=== PATIENT | male | born 2000 | race Caucasian/White ===

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

== ENCOUNTER → 2020-05-10 | Outpatient (CLI) | payer OTHER ==
[2020-05-10 18:53] LABS: African American GFR (CKD) 125.9 (60.0-200.0); Albumin 4.6 g/dL (3.80-4.90); Albumin/Globulin Ratio 1.84 (1.60-3.17); Anion Gap 6.8 mmol/L (4.00-12.00); Calcium 9.7 mg/dL (8.7-10.3); Carbon Dioxide 27.2 mmol/L (21.6-31.8); Chol/HDL Ratio 3.47; Globulin 2.5 g/dL (1.6-3.3); LDL Cholesterol,Calculated 69.8 mg/dL (0.0-131.0); Non-African American GFR(CKD) 108.6 (60.0-200.0); Potassium 4.3 mmol/L (3.5-5.5); Total Bilirubin 1.5 mg/dL (0.2-1.2); Total Protein 7.1 g/dL (6.2-8.2); VLDL Calculation 19.2 mg/dL (5.00-40.00)
== END | disposition home or self-care (01) ==
LOC: LABWHC1 12:19
PROVIDERS: ATTEND Internal Medicine
DX: Z00.00 Encounter for general adult medical examination without abnormal findings (principal); M10.9 Gout, unspecified
CPT/HCPCS: 36415; 80053; 80061

== ENCOUNTER → 2020-06-19 | Outpatient (CLI) | payer OTHER | END | disposition home or self-care (01) | LOC: LABWHC1 15:48 | PROVIDERS: ATTEND Internal Medicine | DX: M10.9 Gout, unspecified (principal) | CPT/HCPCS: 36415; 84550 ==

== ENCOUNTER → 2020-06-19 | Outpatient (CLI) | payer OTHER ==
--- NOTE | 2020-06-20 08:17 | US ---
EXAMINATION TYPE: US kidneys/renal and bladder DATE OF EXAM: 06/19/2020 COMPARISON: NONE CLINICAL HISTORY: 19-year-old male R30.0 DYSURIA. Family history of polycystic kidney. TECHNIQUE: Multiple sonographic images of the kidneys and bladder are obtained. FINDINGS: EXAM MEASUREMENTS: Right Kidney: 10.8 x 5.6 x 5.2 cm Left Kidney: 10.7 x 5.8 x 5.0 cm Computer Hardware Technician notes: Patient of very large body habitus. Technically difficult exam. Right Kidney: multiple cysts, largest 2 measuring 2.0 and 1.7 cm. Also, multiple echogenic foci measu ring up to 8 mm. No hydronephrosis. Left Kidney: A few small cysts, largest measuring 1.1 x 1.2 x 1.2cm. Some low echoes felt to be artif actual or could represent debris. There are small echogenic foci measuring 8 mm. Bladder: wnl Bilateral Jets seen: Yes Incidental finding of diffuse increased echogenicity of the liver and splenomegaly of 15.4cm IMPRESSION: 1. Technically limited exam due to patient body habitus. No hydronephrosis is seen. 2. Renal cysts, right greater than left measuring up to 2.0 cm. Also, suggestion of bilateral nephrol ithiasis measuring up to 8 mm. 3. Incidental: Hepatic steatosis and splenomegaly at 15.4 cm.
== END | disposition home or self-care (01) ==
LOC: RADUSWWP 16:09
PROVIDERS: ATTEND Internal Medicine
DX: N28.1 Cyst of kidney, acquired (principal); R16.1 Splenomegaly, not elsewhere classified; K76.0 Fatty (change of) liver, not elsewhere classified
CPT/HCPCS: 76770

== ENCOUNTER → 2020-08-17 | Outpatient (CLI) | payer OTHER ==
--- NOTE | 2020-08-17 10:59 | MR ---
EXAMINATION TYPE: MR brain wo con DATE OF EXAM: 08/17/2020 COMPARISON: Prior MRI brain October 17, 2015. HISTORY: Headaches TECHNIQUE: Multiplanar, multisequence imaging of the brain and brainstem is performed without IV cont rast. FINDINGS: Diffusion weighted images demonstrate no evidence of a recent infarct or other diffusion abnormality. There is no extraaxial fluid collection or significant white matter signal abnormality. The ventricu lar system and cisternal spaces are normal in size and appearance. The brain volume is age appropria te. Midline structures demonstrate normal morphology. The craniocervical junction appears within normal limits. Normal vascular flow voids are present. Hvit-bj-[id number] mucosal thickening inferior aspect r ight maxillary sinus is now present. Otherwise paranasal sinuses are clear and globes are intact. IMPRESSION: Mild to moderate chronic right maxillary sinus disease otherwise no significant change fr om prior study.
== END | disposition home or self-care (01) ==
LOC: RADMRIMAIN 07:55
PROVIDERS: ATTEND Internal Medicine
DX: R51.9 Headache, unspecified (principal); J32.0 Chronic maxillary sinusitis
CPT/HCPCS: 70551

== ENCOUNTER → 2020-11-15 | Outpatient (CLI) | payer OTHER ==
[2020-11-15 16:06] LABS: African American GFR (CKD) >90 (>60 ml/min/1.73 sqM); Blood Urea Nitrogen 11 mg/dL (9-20); Non-African American GFR(CKD) >90 (>60 ml/min/1.73 sqM)
--- NOTE | 2020-11-15 21:11 | CT ---
EXAMINATION TYPE: CT abdomen wo/w con DATE OF EXAM: 11/15/2020 COMPARISON: Renal ultrasound June 19, 2020 HISTORY: Kidney stone, cyst CT DLP: 2497 mGycm, Automated Exposure Control for Dose Reduction was Utilized. CONTRAST: CT scan of the abdomen is performed without oral and without and with IV Contrast, patient injected w ith 100 mL of Isovue 300. FINDINGS: LUNG BASES: Small degree of subareolar bilateral flame-shaped gynecomastia. LIVER/GB: On noncontrast images of the liver is heterogeneously hyperdense consistent with diffuse f atty infiltration correlating with prior ultrasound. PANCREAS: No significant abnormality is seen. SPLEEN: Spleen is enlarged in size at 14.5 cm long axis axial image 34 series 6 correlating with prio r ultrasound. ADRENALS: No significant abnormality is seen. KIDNEYS: Noncontrast images confirm to small right renal calculi measuring up to 6 mm in size axial i mage 47 series 3. Postcontrast images show symmetric cortical medullary uptake and excretion from bot h kidneys with multiple heterogeneous round hypodense lesions predominantly subcentimeter in size. At least 20 such lesions present bilaterally. One of largest measures 2.0 cm centrally right kidney mid pole level image 49 series 10. There is more hyperdense 2.2 cm lesion lower pole of the left kidney i mage 52 series 10. Thought to reflect proteinaceous cyst. Renal sizes are currently within normal masters its. No hydronephrosis seen bilaterally. BOWEL: Partial visualization of normal-appearing appendix. No suspicious small or large bowel dilatat ion. LYMPH NODES: No greater than 1cm abdominal lymph nodes are appreciated. OSSEOUS STRUCTURES: No significant abnormality is seen. OTHER: No significant additional abnormality is seen. IMPRESSION: 1. Multiple thin-walled cysts of varying size and shape scattered throughout both kidneys some felt t o have proteinaceous or hemorrhagic internal material. Polycystic kidney disease needs to be strongly considered in a patient this age. There are 2 small nonobstructing right renal calculi. 2. Marked fatty infiltration of the liver redemonstrated. Splenomegaly redemonstrated. All findings correlate with the comparison ultrasound.
== END | disposition home or self-care (01) ==
LOC: RADCTMAIN 15:33
PROVIDERS: ATTEND Urology
DX: N28.1 Cyst of kidney, acquired (principal); K76.0 Fatty (change of) liver, not elsewhere classified; R16.1 Splenomegaly, not elsewhere classified; N20.0 Calculus of kidney
CPT/HCPCS: 82565; 84520; 74170; 36415; Q9967

== ENCOUNTER → 2022-08-05 | Outpatient (CLI) | payer OTHER ==
[2022-08-05 23:34] LABS: Basophils # (A) 0.03 X 10*3/uL (0.00-0.10); Basophils % (A) 0.4 %; Eosinophils # (A) 0.18 X 10*3/uL (0.04-0.35); Eosinophils % (A) 2.2 %; HCT 45.9 % (39.6-50.0); Immature Grans, Automated 0.2 %; Lymphocytes # (A) 3.45 X 10*3/uL (0.90-5.00); Lymphocytes % (A) 42.2 %; MCHC 32.7 g/dL (32.0-37.0); MCV 85.6 fL (80.0-97.0); Mean Platelet Volume 10.1 fL (9.5-12.2); Monocytes # (A) 0.65 X 10*3/uL (0.20-1.00); NRBC Per 100 WBC 0 /100 WBCS (0.0-0.0); Neutrophils # (A) 3.84 X 10*3/uL (1.80-7.70); Platelet Count 191 X 10*3/uL (140-440); RBC 5.36 X 10*6/uL (4.40-5.60); RDW 13.7 % (11.5-14.5); WBC 8.17 X 10*3/uL (4.50-10.00)
[2022-08-06 05:20] LABS: Chol/HDL Ratio 4.83 Ratio; LDL Cholesterol,Calculated 102.8 mg/dL (0.0-131.0); Phosphorus 3.1 mg/dL (2.4-5.1)
[2022-08-06 05:36] LABS: ALT 68 U/L (10-49); AST 46 U/L (14-35); African American GFR (CKD) 113.1 (60.0-200.0); Albumin 4.5 g/dL (3.8-4.9); Albumin/Globulin Ratio 1.55 (1.60-3.17); Alkaline Phosphatase 78 U/L (41-126); BUN/Creat Ratio 10.37 Ratio (12.00-20.00); Blood Urea Nitrogen 11.2 mg/dL (9.0-27.0); Calcium 9.5 mg/dL (8.7-10.3); Chloride 103 mmol/L (96-109); Globulin 2.9 g/dL (1.6-3.3); Glucose 79 mg/dL (70-110); Non-African American GFR(CKD) 97.6 (60.0-200.0); Potassium 4.3 mmol/L (3.5-5.5); Sodium 141 mmol/L (135-145); Total Protein 7.5 g/dL (6.2-8.2)
== END | disposition home or self-care (01) ==
LOC: LABWHC1 13:48
PROVIDERS: ATTEND Family Medicine
DX: Q61.2 Polycystic kidney, adult type (principal); Z68.39 Body mass index [BMI] 39.0-39.9, adult
CPT/HCPCS: 36415; 80053; 80061; 83036; 84100; 84439; 84443; 84481; 84550; 85025

== ENCOUNTER → 2022-09-17 | Outpatient (CLI) | payer OTHER ==
--- NOTE | 2022-09-17 10:57 | US ---
EXAMINATION TYPE: US abd limited kidneys/bladder DATE OF EXAM: 09/17/2022 COMPARISON: CT, US CLINICAL HISTORY: R74.01 ELEVATION LIVER TRA Q61.2 POLYCYSTIC KIDNEY. TECHNIQUE: Multiple sonographic images of the right upper quadrant, bilateral kidneys, and bladder ar e obtained. FINDINGS: EXAM MEASUREMENTS: Liver Length: 16.8 cm Gallbladder Wall: 0.2 cm CBD: 0.2 cm Right Kidney: 11.9 x 5.7 x 5.9 cm Left Kidney: 12.2 x 5.8 x 5.3 cm Pancreas: Obscured by bowel gas Liver: limited visualization shows moderate to severe fatty infiltrate Gallbladder: limited visualization shows no obvious abnormality CBD: limited visualization shows no obvious abnormality Right Kidney: innumerable cysts, scattered echogenic foci Left Kidney: innumerable cysts, scattered echogenic foci Bladder: wnl, not fully distended DEVELOPMENT TEAM LEAD NOTES: Morbidly obese patient, technically difficult limited study. IMPRESSION: 1. Hepatic steatosis. 2. Bilateral renal cysts as seen on prior CT to 11/15/2020 consistent with polycystic kidney disease.
== END | disposition home or self-care (01) ==
LOC: RADUSWWP 09:33
PROVIDERS: ATTEND Family Medicine
DX: K76.0 Fatty (change of) liver, not elsewhere classified (principal); Q61.2 Polycystic kidney, adult type; R74.01 Elevation of levels of liver transaminase levels
CPT/HCPCS: 76705; 76770

== ENCOUNTER → 2023-12-31 | Outpatient (CLI) | payer OTHER ==
--- NOTE | 2023-12-31 09:59 | US ---
EXAMINATION TYPE: US kidneys/renal and bladder DATE OF EXAM: 12/31/2023 COMPARISON: 11/15/2020 CLINICAL INDICATION: Male, 23 years old with history of Q61.3 POLYCYSTIC KIDNEY, UNSPECIFIED; polycys tic kidneys EXAM MEASUREMENTS: Right Kidney: 11.6x5.7x7.1 cm volume: 245.8 ml Left Kidney: 11.8x6.4x6.2 cm volume: 245.2 ml Right Kidney: several cystic areas noted and calcifications throughout the renal parenchyma, largest cyst measures 2.2x2.0x2.1 Left Kidney: several cystic areas noted and calcifications throughout the renal parenchyma, largest cyst measures 2.3x1.8x2.0cm Bladder: wnl Bilateral Jets seen: Yes There is no evidence for hydronephrosis at this point in time. No nephrolithiasis is seen. The urin stevie bladder is anechoic. Bilateral ureteral jets are seen. exam limited by body habitus IMPRESSION: 1. No evidence for obstructive uropathy. 2. Polycystic kidneys bilaterally 3. Multiple hyperechoic foci likely representing nonobstructing calculi.
== END | disposition home or self-care (01) ==
LOC: RADUSWWP 06:50
PROVIDERS: ATTEND Internal Medicine Nephrology
DX: Q61.3 Polycystic kidney, unspecified (principal); N28.89 Other specified disorders of kidney and ureter
CPT/HCPCS: 76770